=== PATIENT | male | born 1970 | race Caucasian/White ===

== ENCOUNTER 2019-09-01 00:11 | Emergency (ER) | payer OTHER ==
[2019-09-01 00:20] VITALS: RESP 18; TEMP 97.9
--- NOTE | 2019-09-01 00:30 | ED ---
Chest Pain HPI - General Chief Complaint: Chest Pain Stated Complaint: Chest pain Time Seen by Provider: 09/01/19 00:29 Source: patient, family Mode of arrival: ambulatory Limitations: no limitations - History of Present Illness Initial Comments: Saran is a 48 -year-old male who presents the ER today for evaluation of burning epigastric abdominal pain that is radiating up his chest. Patient reports the pain began around 8 PM. Patient states that he took [id number] PPI and some Tylenol with no improvement. After taking those pills he developed some nausea and had a single episode of nonbloody nonbilious emesis. Patient reports the pains been keeping him from sleeping which prompted him to come the ER for evaluation. Patient denies any recent fevers chills cough, shortness of breath. He denies any exertional chest pain, diaphoresis or dyspnea. He states he was told about a year ago that he does have acid reflux but isn't on any medications daily. - Related Data Previous Rx's Medication Instructions Recorded Pantoprazole Sodium [Protonix] 40 mg PO DAILY #30 tablet. 09/01/19 Sucralfate [Carafate] 1 gm PO ACHS #60 tablet 09/01/19 Allergies Allergy/AdvReac Type Severity Reaction Status Date / Time No Known Allergies Allergy Verified 09/01/19 00:20 Review of Systems ROS Statement: Those systems with pertinent positive or pertinent negative responses have been documented in the HPI. ROS Other: All systems not noted in ROS Statement are negative. EKG Findings - EKG Comments: EKG Findings:: Rate is 66 rhythm is sinus there is right bundle branch block, NC is 162, QRS 124, QTC is 444 there are no acute ST elevations or depressions no evidence of acute ischemia or infarction. No previous EKG for comparison. Past Medical History Past Medical History: GERD/Reflux, Hypertension Additional Past Medical History / Comment(s): Mitral valve prolapse. diverticulosis. History of Any Multi-Drug Resistant Organisms: None Reported Past Psychological History: No Psychological Hx Reported Smoking Status: Never smoker Past Alcohol Use History: Occasional Past Drug Use History: None Reported General Exam - General Exam Comments Initial Comments: Physical Exam GENERAL: Patient is well-developed and well-nourished. Patient is nontoxic and well-hydrated and is in no distress. HENT: Normocephalic, Atraumatic. EYES: PERRL, EOMI PULMONARY: Unlabored respirations. No audible rales rhonchi or wheezing was noted. CARDIOVASCULAR: There is a regular rate and rhythm without any murmurs gallops or rubs. ABDOMEN: Soft with normal bowel sounds. Mild tenderness deep palpation in epigastrium Non-peritoneal SKIN: Skin is clear with no lesions or rashes and otherwise unremarkable. : Deferred NEUROLOGIC: Patient is alert and oriented x3. Moving all extremities spontaneously MUSCULOSKELETAL: Normal extremities with adequate strength and full range of motion. No lower extremity swelling or edema. No calf tenderness. PSYCHIATRIC: Normal psychiatric evaluation. Limitations: no limitations Course Vital Signs 09/01/19 00:14 Temperature 97.9 F Pulse Rate 62 Respiratory 18 Rate Blood Pressure 127/78 O2 Sat by Pulse 98 Oximetry Chest Pain MDM - MDM The patient was seen and evaluated, history is obtained from patient History and physical exam are concerning for more of a GI etiology of pain, patient's EKG was nonischemic, troponin will be obtained however patient has been having pain for nearly 5 hours at this time or as well as a troponin is negative I feel a single troponin is adequate to rule out cardiac etiology. Labs resulted with no significant abnormalities Patient received a GI cocktail and reported that the burning that radiated up through his chest had subsided and that epigastric discomfort had improved but wasn't completely resolved. Again discussed with the patient that I suspect the etiology is GI in nature, patient will be discharged with Carafate and Protoni x, referred to GI for follow-up. Return parameters were discussed patient was discharged home in stable condition. Disposition Clinical Impression: Atypical chest pain, Epigastric pain Disposition: HOME SELF-CARE Condition: Stable Instructions (If sedation given, give patient instructions): Gastritis (DC) Prescriptions: Sucralfate [Carafate] 1 gm PO ACHS #60 tablet Pantoprazole Sodium [Protonix] 40 mg PO DAILY #30 tablet.dr Is patient prescribed a controlled substance at d/c from ED?: No Referrals: Radha Vizcaino DO [Primary Care Provider] - 1-2 days Nannette Mcknight MD [STAFF PHYSICIAN] - 1-2 days
[2019-09-01 01:12] LABS: Basophils % (A) 0 %; Eosinophils # (A) 0.3 k/uL (0-0.7); Eosinophils % (A) 3 %; HCT 43.5 % (39.0-53.0); HGB 14.8 gm/dL (13.0-17.5); Lymphocytes # (A) 2.4 k/uL (1.0-4.8); Lymphocytes % (A) 19 %; MCH 30.1 pg (25.0-35.0); MCV 88.5 fL (80.0-100.0); Mean Platelet Volume 7.4; Monocytes # (A) 0.7 k/uL (0-1.0); Monocytes % (A) 6 %; Neutrophils # (A) 8.8 k/uL (1.3-7.7); Neutrophils % (A) 70 %; Platelet Count 297 k/uL (150-450); RBC 4.92 m/uL (4.30-5.90); RDW 12.2 % (11.5-15.5); WBC 12.5 k/uL (3.8-10.6)
[2019-09-01] MEDS ORDERED: MORPHINE SULFATE 4 MG/ML SYRINGE IVP STA (01:17)
[2019-09-01] MEDS ORDERED: MAG HYDROX/AL HYDROX/SIMETH 30 ML, HYOSCYAMINE ELIXIR 10 ML, LIDOCAINE VISCOUS 2% 10 ML PO STA ×3 (01:17)
[2019-09-01] MEDS ORDERED: ONDANSETRON 4 MG/2 ML VIAL IVP STA (01:17)
[2019-09-01 01:20] LABS: Partial Thromboplastin Time 23.4 sec (22.0-30.0); Prothrombin Time 10.7 sec (9.0-12.0)
[2019-09-01 01:26] LABS: ALT 26 U/L (4-49); AST 28 U/L (17-59); African American GFR (CKD) >90 (>60 ml/min/1.73 sqM); Albumin 4.6 g/dL (3.5-5.0); Alkaline Phosphatase 59 U/L (38-126); Anion Gap 8 mmol/L; Blood Urea Nitrogen 15 mg/dL (9-20); Calcium 9.7 mg/dL (8.4-10.2); Carbon Dioxide 26 mmol/L (22-30); Chloride 102 mmol/L (98-107); Glucose 166 mg/dL (74-99); Non-African American GFR(CKD) >90 (>60 ml/min/1.73 sqM); Potassium 3.6 mmol/L (3.5-5.1); Sodium 136 mmol/L (137-145); Total Bilirubin 0.6 mg/dL (0.2-1.3); Total Protein 7.5 g/dL (6.3-8.2)
--- NOTE | 2019-09-01 01:34 | XR ---
EXAMINATION TYPE: XR chest 2V DATE OF EXAM: 09/01/2019 COMPARISON: NONE HISTORY: Chest pain TECHNIQUE: FINDINGS: Heart and mediastinum are normal. Lungs are clear. Diaphragm is normal. Bony thorax appears normal. Pulmonary vascularity is normal. IMPRESSION: Normal chest.
[2019-09-01 04:22] VITALS: BP 104/69; PULSE 69
== END 2019-09-01 03:19 | disposition home or self-care (01) ==
LOC: EC 00:11
DX: R07.89 Other chest pain (principal); R10.13 Epigastric pain; R11.2 Nausea with vomiting, unspecified; Z87.19 Personal history of other diseases of the digestive system
CPT/HCPCS: 36415; 93005; 80053; 83690; 83735; 84484; 85025; 85610; 85730; 71046; 99285; 96374; 96375; J2270; J2405

== ENCOUNTER → 2021-11-25 | Outpatient (CLI) | payer OTHER ==
--- NOTE | 2021-11-26 04:42 | MR ---
EXAMINATION TYPE: MR hand RT wo/w con DATE OF EXAM: 11/25/2021 COMPARISON: HISTORY: LOCALIZED SWELLING, MASS AND LUMP, RIGHT INDEX AND MIDDLE FINGERS CONTRAST: Standard multiplanar, multisequence MRI departmental protocol images were obtained without contrast a nd with 8 ml mL intravenous Gadavist gadolinium contrast. There is sharply marginated rounded enhancing 11 mm mass involving the middle phalanx of the little f agustin right hand. This is on the medial aspect near the base of the middle phalanx. Lesion shows enha ncement and extends through the cortex into the adjacent soft tissues. There is no evidence of any si gnificant edema in the adjacent medulla of the middle phalanx. I see no evidence of a soft tissue mas s involving the index finger. The metacarpals are intact. Visualized carpal bones are intact. Joint s paces are fairly normal. There is a 5 mm area of fluid signal in the third metacarpal head that is pr obably a degenerative cyst. This is nonenhancing. The flexor tendons of the hand appear intact. IMPRESSION: Solid enhancing mass that appears to be arising from the base of the middle phalanx of the middle fin zoraida of the right hand. The margins are sharp that suggested benign disease. However the cortex is int errupted and there is soft tissue extension. I would consider both benign and malignant tumors.
== END | disposition home or self-care (01) ==
LOC: RADMRIMAIN 19:39
PROVIDERS: ATTEND Nurse Practitioner Family
DX: R22.31 Localized swelling, mass and lump, right upper limb (principal)
CPT/HCPCS: 73220; A9585

== ENCOUNTER 2022-02-19 09:24 | Day surgery (SDC) | payer OTHER ==
[2022-02-17 16:15] VITALS: BMI 27.9
[~2022-02-19 09:24] MED LIST: LACTATED RINGERS 1,000 ML IV SCH
[2022-02-19 09:50] VITALS: TEMP 97
[2022-02-19] MEDS ORDERED: PROPOFOL 10 MG/ML 20 ML VIAL IV ONE (10:26)
[2022-02-19] MEDS ORDERED: LIDOCAINE 2% INJ 20 MG/ML (2 ML VIAL) ONE (10:26)
--- NOTE | 2022-02-19 10:36 | P.PCN ---
Date of Procedure: 02/19/22 Procedure(s) Performed: BRIEF HISTORY: Patient is a 51-year-old, pleasant, white male scheduled for an upper endoscopy as a part of evaluation of intermittent episodes of atypical chest pain for the last 2 years duration.He has 2 episodes so far and was hospitalized. He underwent cardiac workup that was negative. Currently on omeprazole 20 mg daily for possible GERD causing his symptoms. PROCEDURE PERFORMED: Esophagogastroduodenoscopywith biopsy. PREOPERATIVE DIAGNOSIS: atypical chest pain/GERD. IV sedation per anesthesia. PROCEDURE: After informed consent was obtained, the patient was brought into the endoscopy unit. IV sedation was administered by Anesthesia under continuous monitoring. Initially the Olympus GIF-140 video endoscope was inserted into the mouth. Esophagus intubated without any difficulty. It was gradually advanced into the stomach and duodenum and carefully examined. The bulb and the second part of the duodenum appeared normal. The scope at this time was withdrawn to the stomach, adequately insufflated with air, and upon careful examination, mucosa of the antrumhad mild gastritis and biopsies were done from this area. Mucosa of the, body, cardia and the fundus appeared normal. The scope was then withdrawn into the esophagus. The GE junction was located at 40 cm from the incisors. there was a small hiatal hernia noted. There were 2 superficial erosions in the GE junction consistent with LA grade B reflux esophagitis. Rest of the esophagus appeared normal and the patient tolerated the procedure well. IMPRESSION: 1. Mild antral gastritis. 2. Small hiatal hernia and LA grade B reflux esophagitis. RECOMMENDATIONS: The findings of this examination were discussed with the patient as well as his family. He was advised to continue with omeprazole 20 mg daily and follow antirefluxmeasures.
[2022-02-19 10:42] VITALS: RESP 16
[2022-02-19 10:59] VITALS: BP 118/81; PULSE 60
== END 2022-02-19 11:27 | disposition home or self-care (01) ==
LOC: ORWHC2ENDO 09:24
PROVIDERS: ATTEND Internal Medicine Gastroenterology
DX: K29.50 Unspecified chronic gastritis without bleeding (principal); J45.909 Unspecified asthma, uncomplicated; Z79.899 Other long term (current) drug therapy; K44.9 Diaphragmatic hernia without obstruction or gangrene; K21.00 Gastro-esophageal reflux disease with esophagitis, without bleeding
CPT/HCPCS: 43239; 88305; J2704; J2001

== ENCOUNTER → 2023-09-14 | Outpatient (CLI) | payer OTHER ==
--- NOTE | 2023-09-14 10:29 | CA ---
Exercise Stress Test Report Name: Saran Lau Exam Date: 09/14/2023 08:59 Exam Location: [place] Stress Ht (in): 66 Wt (lb): 172 BSA: 1.88 Ordering Phys: Radha Vizcaino DO Referring Phys: Alka Wynne Technologist: Joel Smith Age: 52 Gender: M : 1970 Procedure CPT: Indications: R07.89 other chest pain ICD-10 Codes: Patient History: Medications: LISINOPRIL Meds past 24 hrs: Pretest Chest Pain: STRESS TEST Darron Protocol Exercise Duration (min:sec): 10:[address] Depressions (mm): Angina Score: Maynard Score: Resting HR (bpm): 71 Peak HR (bpm): 159 Resting BP (mmHg): 128 / 92 Peak BP (mmHg): 212 / 92 MPHR: 170 Target HR: 145 % MPHR: 94 METS: 12.1 Total Dose: Peak Dose: Atropine: Double Product: 98661 BP Response: Stress Termination: Reached target heart rate Stress Symptoms: SLIGHT DIZZINESS Stress Summary: ECG ANALYSIS Resting ECG: Normal sinus rhythm normal axis right bundle branch block Stress ECG: Patient exercised on Darron protocol for 10 minutes and 40 seconds achieving 85% of predicted maximal heart rate without chest pain are diagnostic ST segment depression CONCLUSIONS Good exercise tolerance Neck no stress test by EKG criteria Dr. Db Mcknight MD (Electronically Signed) Final Date: 14 September 2023 10:28
== END | disposition home or self-care (01) ==
LOC: RADNMMAIN 08:40
PROVIDERS: ATTEND Family Medicine
DX: R07.89 Other chest pain (principal)
CPT/HCPCS: 93017

== ENCOUNTER 2023-09-17 09:52 | Emergency (ER) | payer OTHER ==
[2023-09-17 09:58] VITALS: RESP 18
[2023-09-17] MEDS: KETOROLAC 15 MG/ML 1 ML VIAL IVP STA ×2 (11:18→12:37)
[2023-09-17] MEDS: SODIUM CHLORIDE 0.9% 1,000 ML IV STA (11:19)
[2023-09-17] MEDS: diphenhydrAMINE 50 MG/ML 1 ML VIAL IVP STA (11:20)
[2023-09-17] MEDS: DEXAMETHASONE SOD PHOSPHATE 10 MG/ML 1 ML VIAL IVP STA (11:22)
[2023-09-17] MEDS: METOCLOPRAMIDE 5 MG/ML 2 ML VIAL IVP STA (11:24)
--- NOTE | 2023-09-17 11:29 | ED ---
Headache HPI - General Chief Complaint: Headache Stated Complaint: Headache Time Seen by Provider: 09/17/23 10:14 Source: patient, RN notes reviewed Mode of arrival: ambulatory Limitations: no limitations - History of Present Illness Initial Comments: This is a 52-year-old male who presents to the emergency department for headaches. States that he has had a constant pressure-like headache over the last couple of months. This tends to change locations, but is worse on the right side. Denies a history of headaches or similar symptoms in the past, ho wever this is not the worst headache of his life. States that he is having visual changes, trouble with his memory, trouble concentrating, and changes in behavior according to his . He has not yet had these headaches evaluated. He did recently have a normal stress test. He takes [id number] Tylenol when symptoms occur, however this is not very beneficial. MD Complaint: headache - Related Data Home Medications Medication Instructions Recorded Confirmed lisinopriL [Zestril] 10 mg PO DAILY 02/17/22 09/17/23 Montelukast [Singulair] 10 mg PO DAILY 02/19/22 09/17/23 Omeprazole Magnesium [PriLOSEC OTC] 20 mg PO DAILY 02/19/22 09/17/23 Elderberry Fruit [Elderberry] 350 mg PO HS 09/17/23 09/17/23 Meloxicam [Mobic] 15 mg PO W/SUPPER 09/17/23 09/17/23 Potassium Gluconate 90 mg PO HS 09/17/23 09/17/23 Previous Rx's Medication Instructions Recorded Ketorolac [Toradol] 10 mg PO Q6HR PRN #15 tab 09/17/23 methocarbamoL [Robaxin-750] 1,500 mg PO TID PRN #20 tab 09/17/23 Allergies Allergy/AdvReac Type Severity Reaction Status Date / Time No Known Allergies Allergy Verified 09/17/23 09:58 Review of Systems ROS Statement: Those systems with pertinent positive or pertinent negative responses have been documented in the HPI. ROS Other: All systems not noted in ROS Statement are negative. Past Medical History Past Medical History: GERD/Reflux, Hypertension Additional Past Medical History / Comment(s): Mitral valve prolapse. diverticulosis. History of Any Multi-Drug Resistant Organisms: None Reported Past Surgical History: Ear Surgery Additional Past Surgical History / Comment(s): Colonoscopy, skin cancer removed. Past Anesthesia/Blood Transfusion Reactions: Postoperative Nausea & Vomiting (PONV) Past Psychological History: No Psychological Hx Reported Smoking Status: Never smoker Past Alcohol Use History: Occasional Past Drug Use History: None Reported - Past Family History Mother Family Medical History: Cancer Additional Family Medical History / Comment(s): Skin cancer. General Exam Limitations: no limitations General appearance: alert, in no apparent distress Head exam: Present: atraumatic, normocephalic, normal inspection Eye exam: Present: normal appearance, PERRL, EOMI. Absent: scleral icterus, conjunctival injection, periorbital swelling Respiratory exam: Present: normal lung sounds bilaterally. Absent: respiratory distress, wheezes, rales, rhonchi, stridor Cardiovascular Exam: Present: regular rate, normal rhythm, normal heart sounds. Absent: systolic murmur, diastolic murmur, rubs, gallop, clicks Neurological exam: Present: alert, oriented X3, CN II-XII intact Psychiatric exam: Present: normal affect, normal mood Skin exam: Present: warm, dry, intact, normal color. Absent: rash Course Vital Signs 09/17/23 09/17/23 09/17/23 09:55 11:04 11:35 Temperature 98.2 F 97.9 F Pulse Rate 66 68 66 Respiratory 18 18 Rate Blood Pressure 147/92 111/63 136/76 O2 Sat by Pulse 100 99 Oximetry 09/17/23 14:55 Temperature 98.1 F Pulse Rate 76 Respiratory 18 Rate Blood Pressure 121/80 O2 Sat by Pulse 100 Oximetry Medical Decision Making - Medical Decision Making This is a 52 year old male who presents to the emergency department for a headache. Was pt. sent in by a medical professional or institution? @ -No Did you speak to anyone other than the patient for history? @ -No Did you review nursing and triage notes? @ -Yes, and I agree, it is accurate with regards to the patient's symptoms. Were old charts reviewed? @ -No Differential Diagnosis? @ -Differential Headache: Migraine, tension, cluster, carbon monoxide, central venous thrombosis, pension karma temporal arteritis, acute closure glaucoma, intercranial hemorrhage, mastoiditis, sinusitis, head injury, this is not meant to be an all-inclusive list. EKG interpreted by me (3pts min.)? @ -Not obtained X-rays interpreted by me (1pt min.)? @ -CT scan of the brain obtained. My interpretation identifies no evidence of an acute intracranial hemorrhage or mass effect. CT interpreted by me (1pt min.)? @ -Not obtained U/S interpreted by me (1pt. min.)? @ -Not obtained What testing was considered but not performed? (CT, X-rays, U/S, labs)? Why? @ -None What meds were considered but not given? Why? @ -None Did you discuss the management of the patient with other professionals? @ -No Did you reconcile home meds? @ -No Was smoking cessation discussed for >3mins.? @ -No Was critical care preformed (if so, how long)? @ -No Were there social determinants of health that impacted care today? How? (Homelessness, low income, unemployed, alcoholism, drug addiction, transportation, low edu. Level, literacy, decrease access to med. care, senior living, rehab)? @ -No Was there de-escalation of care discussed even if they declined? (Discuss DNR or withdrawal of care, Hospice)? @ -No What co-morbidities impacted this encounter? (DM, HTN, Smoking, COPD, CAD, Cancer, CVA, Hep., AIDS, mental health diagnosis, sleep apnea, morbid obesity)? @ -GERD, HTN Was patient admitted / discharged? @ -Discharged. Lab work unremarkable. COVID, influenza, and RSV testing were negative. CT scan of the brain obtained revealing no acute process. Patient treated with a migraine cocktail consisting of IV fluids, Toradol, Decadron, and Benadryl. Advised that if these headaches continue to persist he should follow- up with his primary care provider to discuss a neurology referral. He advised that he has an appointment with his primary care provider scheduled for Thursday, 09/20. I did offer admission for neurology evaluation given the level of concern, however they were comfortable with discharge home and outpatient follow-up. Prescription for Toradol and Robaxin provided with dosing instructions reviewed to see if that offers any relief. Undiagnosed new problem with uncertain prognosis? @ -None Drug Therapy requiring intensive monitoring for toxicity (Heparin, Nitro, Insulin, Cardizem)? @ -None Were any procedures done? @ -None Diagnosis/symptom? @ -Headache Acute, or Chronic, or Acute on Chronic? @ -Acute Uncomplicated (without systemic symptoms) or Complicated (systemic symptoms)? @ -Uncomplicated Side effects of treatment? @ -None Exacerbation, Progression, or Severe Exacerbation] @ -Not applicable Poses a threat to life or bodily function? @ -No Return precautions reviewed in depth, the patient is instructed to return to the emergency department with any new, worsening, or concerning symptoms. Patient verbalized understanding. This case was discussed in detail with the attending ED physician, Dr. Claros. Presentation, findings, and treatment plan discussed in detail as well. - Lab Data Result diagrams: 09/17/23 11:09 09/17/23 11:09 Lab Results 09/17/23 09/17/23 09/17/23 Range/Units 11:09 11: 11:09 WBC 6.2 (3.8-10.6) k/uL RBC 5.00 (4.30-5.90) m/uL Hgb 15.5 (13.0-17.5) gm/dL Hct 45.9 (39.0-53.0) % MCV 91.7 (80.0-100.0) fL MCH 30.9 (25.0-35.0) pg MCHC 33.7 (31.0-37.0) g/dL RDW 12.7 (11.5-15.5) % Plt Count 265 (150-450) k/uL MPV 7.9 Neutrophils % 54 % Lymphocytes % 34 % Monocytes % 7 % Eosinophils % 3 % Basophils % 1 % Neutrophils # 3.3 (1.3-7.7) k/uL Lymphocytes # 2.1 (1.0-4.8) k/uL Monocytes # 0.4 (0-1.0) k/uL Eosinophils # 0.2 (0-0.7) k/uL Basophils # 0.1 (0-0.2) k/uL Sodium 141 (137-145) mmol/L Potassium 4.3 (3.5-5.1) mmol/L Chloride 108 H (98-107) mmol/L Carbon Dioxide 28 (22-30) mmol/L Anion Gap 5 mmol/L BUN 11 (9-20) mg/dL Creatinine 0.73 (0.66-1.25) mg/dL Est GFR (CKD-EPI)AfAm >90 (>60 ml/min/1.73 sqM) Est GFR (CKD-EPI)NonAf >90 (>60 ml/min/1.73 sqM) Glucose 95 (74-99) mg/dL Calcium 9.2 (8.4-10.2) mg/dL Magnesium 2.1 (1.6-2.3) mg/dL Total Bilirubin 0.5 (0.2-1.3) mg/dL AST 21 (17-59) U/L ALT 25 (4-49) U/L Alkaline Phosphatase 60 (38-126) U/L C-Reactive Protein <0.5 (<1.0) mg/dL Total Protein 7.4 (6.3-8.2) g/dL Albumin 4.4 (3.5-5.0) g/dL Influenza Type A (PCR) Not Detected (Not Detectd) Influenza Type B (PCR) Not Detected (Not Detectd) RSV (PCR) Not Detected (Not Detectd) SARS-CoV-2 (PCR) Not Detected (Not Detectd) - Radiology Data Radiology results: report reviewed, image reviewed Disposition Clinical Impression: Headache Disposition: HOME SELF-CARE Instructions (If sedation given, give patient instructions): Acute Headache (ED) Additional Instructions: Return to the emergency department with any new, worsening, or concerning symptoms. Take the Toradol with Tylenol as needed for pain relief. If you choose to take the Toradol, do not take any other anti-inflammatories such as ibuprofen, take one or the other. You can take the Robaxin, which is a muscle relaxant, as 1 to 2 tablets up to 3-4 times daily. Be aware that this may make you drowsy. Follow up with your primary care provider as scheduled. You may need a referral to neurology if your headaches persist. Prescriptions: methocarbamoL [Robaxin-750] 1,500 mg PO TID PRN #20 tab PRN Reason: Pain Ketorolac [Toradol] 10 mg PO Q6HR PRN #15 tab PRN Reason: Pain Is patient prescribed a controlled substance at d/c from ED?: No Referrals: Radha Vizcaino DO [Primary Care Provider] - 09/19/23 11:40 am (Discuss referral to a neurologist for headaches at this appointment. ) Time of Disposition: 12:40
[2023-09-17 11:30] LABS: Basophils # (A) 0.1 k/uL (0-0.2); Basophils % (A) 1 %; Eosinophils # (A) 0.2 k/uL (0-0.7); Eosinophils % (A) 3 %; HCT 45.9 % (39.0-53.0); HGB 15.5 gm/dL (13.0-17.5); Lymphocytes # (A) 2.1 k/uL (1.0-4.8); Lymphocytes % (A) 34 %; MCH 30.9 pg (25.0-35.0); MCHC 33.7 g/dL (31.0-37.0); MCV 91.7 fL (80.0-100.0); Mean Platelet Volume 7.9; Monocytes # (A) 0.4 k/uL (0-1.0); Monocytes % (A) 7 %; Neutrophils # (A) 3.3 k/uL (1.3-7.7); Neutrophils % (A) 54 %; Platelet Count 265 k/uL (150-450); RDW 12.7 % (11.5-15.5); WBC 6.2 k/uL (3.8-10.6)
--- NOTE | 2023-09-17 11:37 | CT ---
EXAMINATION TYPE: CT brain wo con DATE OF EXAM: 09/17/2023 COMPARISON: None INDICATION: Right sided headache x 3 months DLP: 1095.4 mGycm, Automated exposure control for dose reduction was used. CONTRAST: None CT of the brain is performed utilizing 3 mm thick sections through the posterior fossa and 3 mm thick sections through the remaining calvarium. Study is performed within 24 hours of arrival to the hosp ital. No abnormal hyperdensity is present to suggest an acute intracranial hemorrhage. No mass lesion is evident. No acute infarcts are evident. Ventricles and sulci are appropriate for the patient age. A patent cavum septum pellucidum is presen t, normal variant. Paranasal sinuses and mastoid air cells within the [id number] are clear. IMPRESSION: 1. No acute intracranial process. Follow-up MRI can be performed as clinically indicated.
[2023-09-17 11:55] LABS: ALT 25 U/L (4-49); AST 21 U/L (17-59); African American GFR (CKD) >90 (>60 ml/min/1.73 sqM); Albumin 4.4 g/dL (3.5-5.0); Alkaline Phosphatase 60 U/L (38-126); Anion Gap 5 mmol/L; Blood Urea Nitrogen 11 mg/dL (9-20); C Reactive Protein <0.5 mg/dL (<1.0); Calcium 9.2 mg/dL (8.4-10.2); Carbon Dioxide 28 mmol/L (22-30); Chloride 108 mmol/L (98-107); Glucose 95 mg/dL (74-99); Magnesium 2.1 mg/dL (1.6-2.3); Non-African American GFR(CKD) >90 (>60 ml/min/1.73 sqM); Potassium 4.3 mmol/L (3.5-5.1); Sodium 141 mmol/L (137-145); Total Bilirubin 0.5 mg/dL (0.2-1.3); Total Protein 7.4 g/dL (6.3-8.2)
[2023-09-17] MEDS: ASPIRIN-ACET-CAFF 250-250-65MG 1 EACH TAB PO STA (12:49)
[2023-09-17] MEDS: ACET/COD 300 MG/30 MG STARTER PACK 6 TAB BTL PO STA (14:52)
[2023-09-17 15:13] VITALS: BP 121/80; PULSE 76; TEMP 98.1
== END 2023-09-17 14:57 | disposition home or self-care (01) ==
LOC: EC 09:52
DX: R51.9 Headache, unspecified (principal)
CPT/HCPCS: 36415; 80053; 83735; 85025; 86140; 87636; 70450; 99284; 96374; 96375 ×3; 96376; 96361; J1200; J1100; J2765; J1885

== ENCOUNTER → 2024-03-22 | Outpatient (CLI) | payer OTHER ==
--- NOTE | 2024-03-22 18:26 | CT ---
EXAMINATION TYPE: CT sinus wo con CT DLP: 531.0 mGycm, Automated exposure control for dose reduction was used. DATE OF EXAM: 03/22/2024 5:31 PM COMPARISON: 09/17/2023. CLINICAL INDICATION: Male, 53 years old with history of J32.9 CHRONIC SINUSITIS, UNSPECIFIED; , Chron ic sinusitis, right side sinus pressure, earaches, and headaches x 10 months. TECHNIQUE: Multiple thin axial images were obtained through the paranasal sinuses without the use of IV contrast. Additional coronal and sagittal reformatted images were submitted for evaluation. Contrast used: none Oral contrast used: none FINDINGS: Frontal sinuses: Normally developed and aerated. Frontal Recess: Clear Maxillary Sinuses: Normally developed. Moderate right mucosal thickening. Maxillary Infundibula([facility]): Mucosal thickening with narrowed right nearly opacified, the left is winter nt No Danielle cells identified. r retention cyst in the left maxillary sinus measuring 20 mm. Right m axillary sinus cyst measuring up to 23 mm. Ethmoid sinuses: Normally developed with scattered mucosal thickening.. Ethmoidal notch: Unprotected bilateral anterior ethmoidal arteries. Sphenoid sinuses: Normally developed with mild mucosal thickening left greater than right.. There is sphenoid sinus pneumatization without evidence of dehiscence. No dehiscence of carotid canal. No jake dence of optic nerve dehiscence within the sphenoid sinus. No evidence of Onodi cells. Sphenoethmoid al recesses: Clear. Nasal septum: Mild rightward deviation of the anterior septum and Nasal Turbinates: Mucosal thickening bilaterally of the middle and inferior turbinates. Mastoid air cells & middle ears: The air cells are clear. The middle ears are grossly unremarkable. Modified Soft tissues & Brain: Partially seen without gross abnormality. Globes are intact. Other: Cribriform plate demonstrates symmetric cribriform plate. No evidence of bony dehiscence of skull ba se. Lamina papyracea is intact without evidence of remote orbital fracture or orbital prolapse into the e thmoid sinus. IMPRESSION: 1. Moderate maxillary sinus paranasal sinus disease with nearly opacified right ostiomeatal complex. Bilateral maxillary sinus retention cyst 2. The right ostiomeatal units, frontonasal and sphenoethmoidal recesses are clear. [facility], Workstation: [id number], 03/22/2024 6:24 PM
== END | disposition home or self-care (01) ==
LOC: RADCTMAIN 17:01
PROVIDERS: ATTEND Nurse Practitioner Family
CPT/HCPCS: 70486